=== PATIENT | male | born 1995 | race American Indian/Alaskan Native ===

== ENCOUNTER 2017-05-31 19:33 | Emergency (ER) | payer SELFPAY ==
[2017-05-31] MEDS ORDERED: MOTRIN PO ONE ×2 (20:10)
--- NOTE | 2017-05-31 21:32 | Emergency Department Report ---
ED General Adult HPI - General Chief complaint: Earache Stated complaint: CHEST PAIN Time Seen by Provider: 05/31/17 21:03 Source: patient, old records reviewed Mode of arrival: Ambulatory Limitations: No Limitations - History of Present Illness Initial comments: PT c/o R ear pain, onset today. PT States he thinks the symptoms are related to him having a cold. PT states he was at a friend's house last week and he was around some kids who had a cold. PT states he has felt like he had a cold x 1 week. PT states he has had a productive cough and is producing yellow mucous. PT does report body aches and intermittent headache. PT state the pill he was given helped with his ear pain. PT denied having any significant pmh. When specifically asked about his immune status, he states he had free hiv test last week and it was positive. PT has not seen Infections Disease MD yet. PT states he has not follow up from his previous visit (03-31-16) for his L foot. PT states he did not follow up with lab work. MD Complaint: cough and R ear pain Onset/Timin -: Gradual, week(s) Severity scale (0 -10): 6 (after Motrin) Quality: aching Consistency: constant Improves with: medication Associated Symptoms: chest pain, cough, headaches, nausea/vomiting. denies: fever/chills, shortness of breath Treatments Prior to Arrival: none - Related Data Previous Rx's Medication Instructions Recorded Last Taken Type Azithromycin [Zithromax] 250 mg PO DAILY #6 tablet 05/31/17 Unknown Rx Benzonatate [Tessalon Perles] 100 mg PO Q8HR PRN #12 capsule 05/31/17 Unknown Rx Ibuprofen [Motrin] 600 mg PO Q8H PRN #15 tablet 05/31/17 Unknown Rx Allergies Allergy/AdvReac Type Severity Reaction Status Date / Time No Known Allergies Allergy Verified 03/30/16 22:18 ED Review of Systems ROS: Stated complaint: CHEST PAIN Other details as noted in HPI Comment: All other systems reviewed and negative Constitutional: denies: fever, malaise ENT: ear pain, throat pain Respiratory: cough. denies: shortness of breath, wheezing Cardiovascular: chest pain (hurts to cough ) Gastrointestinal: nausea (after coughing hard ). denies: abdominal pain, vomiting Musculoskeletal: other (L foot wound ) Skin: rash Neurological: headache (intermitent ) ED Past Medical Hx - Past Medical History Hx Psychiatric Treatment: Yes (bipolar) Hx HIV: Yes - Surgical History Past Surgical History?: No - Social History Smoking Status: Current Every Day Smoker Substance Use Type: None, Marijuana - Medications Home Medications: Home Medications Medication Instructions Recorded Confirmed Last Taken Type Azithromycin [Zithromax] 250 mg PO DAILY #6 tablet 05/31/17 Unknown Rx Benzonatate [Tessalon Perles] 100 mg PO Q8HR PRN #12 capsule 05/31/17 Unknown Rx Ibuprofen [Motrin] 600 mg PO Q8H PRN #15 tablet 05/31/17 Unknown Rx ED Physical Exam - General Limitations: No Limitations General appearance: alert, other (thin) - Head Head exam: Present: atraumatic, normocephalic, normal inspection - Eye Eye exam: Present: normal appearance, PERRL, EOMI. Absent: conjunctival injection - ENT ENT exam: Present: mucous membranes moist, normal external ear exam - Expanded ENT Exam Expanded TM/Canal exam: Cerumen Impaction: Right TM (partial) Mouth exam: Absent: drooling, trismus, muffled voice Throat exam: Positive: tonsillar erythema, tonsillomegaly, tonsillar exudate. Negative: R peritonsillar mass, L peritonsillar mass - Neck Neck exam: Present: normal inspection, full ROM, lymphadenopathy. Absent: tenderness, meningismus - Respiratory Respiratory exam: Present: other (pt has cough during exam ). Absent: normal lung sounds bilaterally, respiratory distress - Cardiovascular Cardiovascular Exam: Present: tachycardia - GI/Abdominal GI/Abdominal exam: Present: soft. Absent: tenderness - Extremities Exam Extremities exam: Absent: pedal edema, joint swelling - Expanded Lower Extremity Exam Left Foot/Toe exam: Present: full ROM. Absent: normal inspection (left foot with skin growth on the lateral aspect ), ecchymosis, deformity, puncture wound Neuro vascular tendon exam: Absent: pulse deficit Gait: Positive: observed and normal Right Knee exam: Present: normal inspection, full ROM Lower Leg exam: Present: normal inspection, full ROM Foot/Toe exam: Absent: normal inspection (rash to R sole ) Neuro vascular tendon exam: Absent: no vascular compromise, pulse deficit Gait: Positive: observed and normal - Back Exam Back exam: Present: normal inspection, full ROM. Absent: tenderness, CVA tenderness (R), CVA tenderness (L), muscle spasm, paraspinal tenderness - Neurological Exam Neurological exam: Present: alert, oriented X3, CN II-XII intact, normal gait - Psychiatric Psychiatric exam: Present: normal affect, normal mood - Skin Skin exam: Present: warm, dry - Expanded Skin Exam Expanded Distribution of rash: involves palms/soles Description of rash: Present: macular (R sole ), crusting (L sole ) ED Course Vital Signs 05/31/17 05/31/17 19:57 22:48 Temperature 99.3 F Pulse Rate 103 H 89 Respiratory 16 18 Rate Blood Pressure 128/76 Blood Pressure 128/76 111/66 [Left] O2 Sat by Pulse 100 100 Oximetry - Reevaluation(s) Reevaluation #1: 05/31/17 22:28 PT aware of dx and plan of care. PT is stable and wanting dc home. PT has been given strict dc instructions and he agrees to return to the ED if worsening. PT understands that he will need local PCP. PT states he just moved to the area in March. Pt aware given hx of positive HIV test, he will need evaluation by infection disease md. PT Aware of abnormal lab work on previous visit. Dr Cummins aware of pt and agrees with plan of care. - Pulse Oximetry Interpretation Digit-Finger Initial Pulse Oximetry Readin Actions Taken: none ED Medical Decision Making - Lab Data rapid strep - positive - EKG Data -: EKG Interpreted by Me EKG shows normal: sinus rhythm Rate: normal - EKG Data Interpretation: normal EKG - Radiology Data Radiology results: report reviewed CXR- PNA - Differential Diagnosis pna, syphillis, strep pharyngitis, bronchitis Critical Care Time: No Critical care attestation.: If time is entered above; I have spent that time in minutes in the direct care of this critically ill patient, excluding procedure time. ED Disposition Clinical Impression: CAP (community acquired pneumonia), Strep pharyngitis, Otalgia, right ear, Excessive cerumen in right ear canal Disposition: DC-01 TO HOME OR SELFCARE Is pt being admited?: No Does the pt Need Aspirin: No Condition: Stable Instructions: Cerumen Impaction (ED), Strep Throat (ED), Community-acquired Pneumonia (ED), Bacterial Pneumonia (ED), Earache (ED) Additional Instructions: rest Follow up with PCP in the next 2-3 days You will need evaluation by infectious disease doctor -go to medical records and get copies of labs from previous visit and take with you to your follow up Finish all antibiotics Return to the ED if you develop fevers, chills, shortness of breath or new concerns Prescriptions: Azithromycin [Zithromax] 250 mg PO DAILY #6 tablet Benzonatate [Tessalon Perles] 100 mg PO Q8HR PRN #12 capsule PRN Reason: Cough Ibuprofen [Motrin] 600 mg PO Q8H PRN #15 tablet PRN Reason: Pain Referrals: PRIMARY CAREMD [Primary Care Provider] - 3-5 Days FAY CABALLERO MD [Staff Physician] - 3-5 Days [facility] [Outside] - 3-5 Days [facility] [Outside] - 3-5 Days BERNY ODONNELL MD [Staff Physician] - 3-5 Days KIARRA BENSON MD [Staff Physician] - 3-5 Days KEVIN ASHLEY MD [Staff Physician] - 3-5 Days Forms: Work/School Release Form(ED) Time of Disposition: 22:32
--- NOTE | 2017-05-31 21:56 | XRay Report ---
FINAL REPORT PROCEDURE: PA and lateral chest x-ray TECHNIQUE: PA and lateral chest radiographs were obtained. CPT 66041 HISTORY: hiv, cough COMPARISON: Prior chest x-ray 03/30/2016 FINDINGS: Heart: Normal. Mediastinum/Vessels: Normal. Lungs/Pleural space: There is a new patchy consolidations seen in the lingula suggesting pneumonia. Small amount of patchy alveolar density also seen posteriorly inferiorly in the right lower lobe. No effusions are seen. Bony thorax: No acute osseous abnormality. Other: IMPRESSION: Alveolar densities lingula and right lower lobe suggesting areas of pneumonia and or atelectasis. No effusions are identified. No other abnormalities are identified..
[2017-05-31 22:49] VITALS: BP 111/66
== END 2017-05-31 22:49 | disposition home or self-care (01) ==
LOC: ED 19:33
DX: J18.9 Pneumonia, unspecified organism (principal); J02.0 Streptococcal pharyngitis; H92.01 Otalgia, right ear; H61.21 Impacted cerumen, right ear
CPT/HCPCS: 71020; 87430; 93005; 93010; 99283

== ENCOUNTER 2019-11-24 11:29 | Emergency (ER) | payer SELFPAY ==
--- NOTE | 2019-11-24 12:01 | XRay Report ---
CHEST 2 VIEWS INDICATION / CLINICAL INFORMATION: cough, left rib pain. COMPARISON: 05/31/2017 FINDINGS: SUPPORT DEVICES: None. HEART / MEDIASTINUM: No significant abnormality. LUNGS / PLEURA: No significant pulmonary or pleural abnormality. No pneumothorax. ADDITIONAL FINDINGS: No significant additional findings. IMPRESSION: 1. No acute findings. Signer Name: Shine Atkinson MD Signed: 11/24/2019 11:56 AM Workstation Name: [id number]
[2019-11-24] MEDS ORDERED: IBUPROFEN 400 MG TAB PO ONE (12:38)
[2019-11-24] MEDS ORDERED: IBUPROFEN 600 MG TAB PO ONE ×2 (12:40→12:41)
[2019-11-24] MEDS ORDERED: BENZONATATE 100 MG CAP PO ONE (15:07)
[2019-11-24 15:28] VITALS: BP 101/64
--- NOTE | 2019-11-24 16:03 | XRay Report ---
Chest with right RIBS 4 views. 11/24/2019. HISTORY: Rib pain. FINDINGS: Heart size is normal. The lungs are clear. Negative for pleural fluid or pneumothorax. Negative for bony injury. Signer Name: Yohannes Patel MD Signed: 11/24/2019 3:59 PM Workstation Name: [id number]
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
== END 2019-11-24 16:40 | disposition home or self-care (01) ==
LOC: ED 11:29
DX: S20.212A Contusion of left front wall of thorax, initial encounter (principal); J40 Bronchitis, not specified as acute or chronic; F31.9 Bipolar disorder, unspecified; F17.200 Nicotine dependence, unspecified, uncomplicated; Z79.899 Other long term (current) drug therapy; X58.XXXA Exposure to other specified factors, initial encounter; Y93.89 Activity, other specified; Y92.89 Other specified places as the place of occurrence of the external cause; Y99.8 Other external cause status
CPT/HCPCS: 71046

== ENCOUNTER 2021-08-03 01:35 | Emergency (ER) | payer SELFPAY ==
--- NOTE | 2021-08-03 07:09 | Emergency Department Report ---
ED Rash HPI - HPI Chief Complaint: Skin Rash Stated Complaint: BODY RASH Time Seen by Provider: 08/03/21 06:58 Duration: 6 months Location: Upper Extremities, Lower Extremities Rash Symptoms: Yes Itching Severity: severe ED Review of Systems ROS: Stated complaint: BODY RASH Other details as noted in HPI ED Past Medical Hx - Past Medical History Previous Medical History?: Yes Hx Psychiatric Treatment: Yes (bipolar) Hx HIV: Yes - Surgical History Past Surgical History?: No - Social History Smoking Status: Never Smoker Substance Use Type: None - Medications Home Medications: Home Medications Medication Instructions Recorded Confirmed Last Taken Type Azithromycin [Zithromax] 250 mg PO DAILY #6 tablet 05/31/17 Unknown Rx Benzonatate [Tessalon Perles] 100 mg PO Q8HR PRN #12 capsule 05/31/17 Unknown Rx Ibuprofen [Motrin] 600 mg PO Q8H PRN #15 tablet 05/31/17 Unknown Rx Azithromycin [Zithromax Z-JIAN] 250 mg PO DAILY #6 tablet 11/24/19 Unknown Rx Benzonatate [Tessalon Perles] 100 mg PO Q8HR PRN #20 capsule 11/24/19 Unknown Rx Ibuprofen [Motrin] 600 mg PO Q8H PRN #20 tablet 11/24/19 Unknown Rx Triamcinolone 0.1% [Kenalog 0.1% 1 applic TP TID PRN #1 tube 08/03/21 Unknown Rx CREAM] Rash Exam - Exam General: Vital signs noted. No distress. Alert and acting appropriately. ED Course Vital Signs 08/03/21 03:24 Temperature 98.4 F Pulse Rate 75 Respiratory 18 Rate Blood Pressure 125/84 O2 Sat by Pulse 97 Oximetry Critical care attestation.: If time is entered above; I have spent that time in minutes in the direct care of this critically ill patient, excluding procedure time. ED Disposition Clinical Impression: Eczema Disposition: 01 HOME / SELF CARE / HOMELESS Is pt being admited?: No Does the pt Need Aspirin: No Condition: Stable Instructions: Eczema Additional Instructions: Apply cream to rash 3 times a day as needed follow-up with your primary care provider or manufacturing engineering director. Prescriptions: Triamcinolone 0.1% [Kenalog 0.1% CREAM] 1 applic TP TID PRN #1 tube PRN Reason: Rash Referrals: PRIMARY CARE, [Primary Care Provider] - 3-5 Days CARBUCCIA,TNOE, MD [Staff Physician] - 3-5 Days Forms: Work/School Release Form(ED) Time of Disposition: 07:01
[2021-08-03 07:19] VITALS: BP 130/83
== END 2021-08-03 07:19 | disposition home or self-care (01) ==
LOC: ED 01:35
DX: L30.9 Dermatitis, unspecified (principal); F31.9 Bipolar disorder, unspecified; Z21 Asymptomatic human immunodeficiency virus [HIV] infection status; Z79.899 Other long term (current) drug therapy
CPT/HCPCS: 99282

== ENCOUNTER 2022-07-31 20:06 | Emergency (ER) | payer SELFPAY ==
[2022-07-31 21:18] VITALS: BP 141/74
--- NOTE | 2022-08-01 07:52 | Emergency Department Report ---
- General Chief complaint: Eye Problems Stated complaint: RIGHT EYE SWOLLEN/SORE THROAT Time Seen by Provider: 08/01/22 07:50 Source: patient Mode of arrival: Ambulatory Limitations: No Limitations - Related Data Previous Rx's Medication Instructions Recorded Last Taken Type Clindamycin [Clindamycin CAP] 300 mg PO Q8H #30 cap 08/01/22 Unknown Rx Ibuprofen [Motrin] 600 mg PO Q8H PRN #15 tablet 08/01/22 Unknown Rx Polymyxin B Sulf/Trimethoprim 2 drop OP QID #1 bottle 08/01/22 Unknown Rx [Polytrim Eye Drops [id number]/0.1%] Triamcinolone 0.1% [Kenalog 0.1% 1 applic TP TID PRN #1 tube 08/01/22 Unknown Rx CREAM] Allergies Allergy/AdvReac Type Severity Reaction Status Date / Time No Known Allergies Allergy Verified 03/30/16 22:18 Abscess Boil HPI - HPI Chief Complaint: Eye Problems Stated Complaint: RIGHT EYE SWOLLEN/SORE THROAT Time Seen by Provider: 08/01/22 07:50 Home Medications: Previous Rx's Medication Instructions Recorded Last Taken Type Clindamycin [Clindamycin CAP] 300 mg PO Q8H #30 cap 08/01/22 Unknown Rx Ibuprofen [Motrin] 600 mg PO Q8H PRN #15 tablet 08/01/22 Unknown Rx Polymyxin B Sulf/Trimethoprim 2 drop OP QID #1 bottle 08/01/22 Unknown Rx [Polytrim Eye Drops 91418kumek/0.1%] Triamcinolone 0.1% [Kenalog 0.1% 1 applic TP TID PRN #1 tube 08/01/22 Unknown Rx CREAM] Allergies/Adverse Reactions: Allergies Allergy/AdvReac Type Severity Reaction Status Date / Time No Known Allergies Allergy Verified 03/30/16 22:18 ED Review of Systems ROS: Stated complaint: RIGHT EYE SWOLLEN/SORE THROAT Other details as noted in HPI Comment: All other systems reviewed and negative ED Past Medical Hx - Past Medical History Previous Medical History?: Yes Hx Psychiatric Treatment: Yes (bipolar) Hx HIV: Yes Additional medical history: eczema - Surgical History Past Surgical History?: No - Family History Family history: no significant - Social History Smoking Status: Never Smoker Substance Use Type: None - Medications Home Medications: Home Medications Medication Instructions Recorded Confirmed Last Taken Type Clindamycin [Clindamycin CAP] 300 mg PO Q8H #30 cap 08/01/22 Unknown Rx Ibuprofen [Motrin] 600 mg PO Q8H PRN #15 tablet 08/01/22 Unknown Rx Polymyxin B Sulf/Trimethoprim 2 drop OP QID #1 bottle 08/01/22 Unknown Rx [Polytrim Eye Drops 10335pbnsh/0.1%] Triamcinolone 0.1% [Kenalog 0.1% 1 applic TP TID PRN #1 tube 08/01/22 Unknown Rx CREAM] ED Physical Exam - General Limitations: No Limitations General appearance: alert, in no apparent distress - Head Head exam: Present: atraumatic, normocephalic - Eye Eye exam: Present: normal appearance - ENT ENT exam: Present: mucous membranes moist - Expanded ENT Exam Expanded TM/Canal exam: Erythema: Right TM, Canal Discharge: Right TM, Canal Tenderness: Right TM Mouth exam: Present: normal external inspection. Absent: drooling, trismus, muffled voice Teeth exam: Present: normal inspection Throat exam: Positive: normal inspection - Neck Neck exam: Present: normal inspection - Respiratory Respiratory exam: Present: normal lung sounds bilaterally. Absent: respiratory distress - Cardiovascular Cardiovascular Exam: Present: regular rate, normal rhythm. Absent: systolic murmur, diastolic murmur, rubs, gallop - GI/Abdominal GI/Abdominal exam: Present: soft, normal bowel sounds - Rectal Rectal exam: Present: deferred - Extremities Exam Extremities exam: Present: normal inspection - Back Exam Back exam: Present: normal inspection - Neurological Exam Neurological exam: Present: alert, oriented X3 - Psychiatric Psychiatric exam: Present: normal affect, normal mood - Skin Skin exam: Present: warm, dry, normal color, other. Absent: rash - Expanded Skin Exam Expanded 1 - eczema 2 - eczema 3 - eczema 4 - eczema with secondary infection. red/swollen/weeping ED Course Vital Signs 07/31/22 21:16 Temperature 102.9 F H Pulse Rate 103 H Respiratory 16 Rate Blood Pressure 141/74 O2 Sat by Pulse 97 Oximetry ED Medical Decision Making - Medical Decision Making Vital Signs 07/31/22 21:16 Temperature 102.9 F H Pulse Rate 103 H Respiratory 16 Rate Blood Pressure 141/74 O2 Sat by Pulse 97 Oximetry a/c eczema with secondary infection of the right side of face and r ear. pt reports pain in those areas he has numerous other patches r ear involved many areas of dry eczema- see diagram pt off his meds for some time. repeat vs temp 98, hr 80 per RN i've asked them to document in EMR pt ambulatory taking po clinda IM- prednisone and tylenol given in ER. pt being dc home with dc plan of care including diet, meds, activity and follow up. He verbalizes understanding of plan of care - Differential Diagnosis eczema with secondary infection Critical care attestation.: If time is entered above; I have spent that time in minutes in the direct care of this critically ill patient, excluding procedure time. ED Disposition Clinical Impression: Cellulitis Eczema Qualifiers: Eczema type: unspecified Qualified Code(s): L30.9 - Dermatitis, unspecified Disposition: 01 HOME / SELF CARE / HOMELESS Is pt being admited?: No Does the pt Need Aspirin: No Condition: Stable Instructions: Eczema, Cellulitis, Adult, [id number] Additional Instructions: meds as ordered until gone follow up with pcp next week to be sure this is getting better referral below stay well hydrated with water tylenol can also be used for pain Prescriptions: Clindamycin [Clindamycin CAP] 300 mg PO Q8H #30 cap Triamcinolone 0.1% [Kenalog 0.1% CREAM] 1 applic TP TID PRN #1 tube PRN Reason: Rash Ibuprofen [Motrin] 600 mg PO Q8H PRN #15 tablet PRN Reason: Pain Polymyxin B Sulf/Trimethoprim [Polytrim Eye Drops [id number]/0.1%] 2 drop OP QID #1 bottle Referrals: TONE FUENTES MD [Primary Care Provider] - 3-5 Days Forms: Work/School Release Form(ED) Time of Disposition: 08:56
[2022-08-01] MEDS ORDERED: ACETAMINOPHEN 500 MG TAB PO ONE (07:53)
[2022-08-01] MEDS ORDERED: predniSONE 20 MG TAB PO ONE (07:53)
[2022-08-01] MEDS: CLINDAMYCIN 150 MG/ML VIAL 6 ML IM ONE ×2 (09:17→09:56)
[2022-08-01] MEDS ORDERED: CLINDAMYCIN 150 MG/ML VIAL 6 ML IM ONE (09:30)
== END 2022-08-01 09:47 | disposition home or self-care (01) ==
LOC: ED 20:06
DX: H60.11 Cellulitis of right external ear (principal); H57.89 Other specified disorders of eye and adnexa; L30.9 Dermatitis, unspecified; F31.9 Bipolar disorder, unspecified; Z79.899 Other long term (current) drug therapy
CPT/HCPCS: 96372; 99282